=== PATIENT | female | born 1945 | race Two or more races ===

== ENCOUNTER → 2019-12-13 | Outpatient (CLI) | payer MEDICARE ==
[~2019-12-13] MED LIST: ATOR40TA75 PO; B-COCAP8 PO; CYAN500T8 PO; GABA-843 PO; INDO-16 PO; LYNP150T PO; TERB250T90 PO; VITA-243 PO; VITACAP31 PO
== END ==
LOC: M LABSMTC 10:53
PROVIDERS: ATTEND Anesthesiology
DX: Z01.818 Encounter for other preprocedural examination (principal); Z11.59 Encounter for screening for other viral diseases
CPT/HCPCS: C9803; U0003

== ENCOUNTER 2019-12-16 09:02 | Day surgery (SDC) | payer OTHER, MEDICARE ==
[~2019-12-16] VITALS: Ht 167.6 cm; Wt 78.0 kg
[~2019-12-16 09:02] MED LIST changes: +NS 1,000 ML IV ONE
[2019-12-16] MEDS ORDERED: propofoL 200 MG/20 ML VIAL As Ordered ONE (10:04)
--- NOTE | 2019-12-16 10:18 | ROOR ---
Patient Name: Socorro Estrada Procedure Date: 12/16/2019 9:53 AM Date of : 1945 Age: 74 Room: [facility] Gender: Female Note Status: Finalized Procedure: Total Colonoscopy to Cecum Indications: Colon cancer screening in patient at increased risk: Colorectal cancer in father, High risk colon cancer surveillance: Personal history of colonic polyps, Last colonoscopy: 2015 Providers: Thuan Lucas MD Referring MD: 1. No Referring Physician 1. No Referring Physician, Admin. Requesting Provider: Medicines: Monitored Anesthesia Care Complications: No immediate complications. Procedure: Pre-Anesthesia Assessment: - The heart rate, respiratory rate, oxygen saturations, blood pressure, adequacy of pulmonary ventilation, and response to care were monitored throughout the procedure. The Colonoscope was introduced through the anus and advanced to the cecum, identified by appendiceal orifice and ileocecal valve. The colonoscopy was performed without difficulty. The patient tolerated the procedure well. The quality of the bowel preparation was excellent. Findings: The perianal and digital rectal examinations were normal. Non-bleeding internal hemorrhoids were found during retroflexion. The hemorrhoids were small and Grade I (internal hemorrhoids that do not prolapse). There was evidence of a prior end-to-end colo-colonic anastomosis at 10 cm proximal to the anus. This was patent and was characterized by healthy appearing mucosa. The anastomosis was traversed. The exam was otherwise without abnormality on direct and retroflexion views. Impression: - Non-bleeding internal hemorrhoids. - Patent end-to-end colo-colonic anastomosis, characterized by healthy appearing mucosa. - The examination was otherwise normal on direct and retroflexion views. - No specimens collected. - The exam was otherwise normal to the cecum. Recommendation: - Patient has a contact number available for emergencies. The signs and symptoms of potential delayed complications were discussed with the patient. Return to normal activities tomorrow. Written discharge instructions were provided to the patient. - Resume previous diet. - Discharge patient to home. - Continue present medications. - Repeat colonoscopy in 5 years for screening purposes. - Return to referring physician. - The findings and recommendations were discussed with the patient's family. Thuan Lucas MD Thuan Lucas MD 12/16/2019 10:18:01 AM Electronically signed by Thuan Lucas MD Number of Addenda: 0 Note Initiated On: 12/16/2019 9:53 AM Estimated Blood Loss: Estimated blood loss: none.
[2019-12-16 10:35] VITALS: BP 152/72
== END 2019-12-16 11:30 | disposition home or self-care (01) ==
LOC: M OPP 09:02
PROVIDERS: ATTEND Internal Medicine Gastroenterology
DX: Z12.11 Encounter for screening for malignant neoplasm of colon (principal); Z86.010 Personal history of colon polyps; Z80.0 Family history of malignant neoplasm of digestive organs; K64.0 First degree hemorrhoids; Z98.0 Intestinal bypass and anastomosis status; Z79.899 Other long term (current) drug therapy